=== PATIENT | male | born 1960 | race Caucasian/White ===

== ENCOUNTER 2019-12-15 09:43 | Emergency (ER) | payer OTHER, SELFPAY ==
[2019-12-15 09:52] VITALS: BP 129/69; PULSE 78; RESP 20; TEMP 37.2; O2SAT 99
--- NOTE | 2019-12-15 09:52 | ED.GENADULT ---
HPI - General Adult General Chief complaint: Skin/Abscess/Foreign Body Stated complaint: right hand wasp sting Time Seen by Provider: 12/15/19 09:52 Source: patient Mode of arrival: ambulatory Limitations: no limitations History of Present Illness HPI narrative: 59-year-old male patient presents to the [facility] with complaints of a wasp sting to the right hand that occurred yesterday. Patient states after he was stung he tried to put some ice on it to help with the swelling and states that the swelling did go down and put ice on it several times yesterday. Patient states he also took 2 Benadryl last night as well to Benadryl this morning help with swelling. Patient states that this morning the swelling is gotten significantly worse and feels warm to the touch. Patient states he does feel some tightness to his hand whenever he is making a fist. Denies any chest pain, shortness of breath or trouble swallowing. Related Data Home Medications Medication Instructions Recorded Confirmed atenolol 25 mg PO DAILY 12/15/19 12/15/19 [id number] oil 1 cap PO BID 12/15/19 12/15/19 [Metanx (algal oil)] sildenafil 25 mg PO DAILY PRN 12/15/19 12/15/19 Allergies Allergy/AdvReac Type Severity Reaction Status Date / Time No Known Allergies Allergy Verified 12/15/19 09:59 Review of Systems Review of Systems: Narrative: CONSTITUTIONAL: Denies fever, chills, or sweats. EYES: Denies visual changes, redness, or discharge. ENT: Denies rhinorrhea, congestion, sore throat, or otalgia. CARDIOVASCULAR: Denies chest pain, palpitations, or edema. RESPIRATORY: Denies cough or dyspnea. GASTROINTESTINAL: Denies abdominal pain, nausea, vomiting, or diarrhea. GENITOURINARY: Denies dysuria or hematuria. SKIN: Denies rash or itching. Positive wasp sting to right hand with swelling since yesterday MUSCULOSKELETAL: Denies back pain, joint pain, or myalgia. NEUROLOGIC: Denies headache, numbness, or weakness. PSYCHIATRIC: Denies anxiety or depression. PMFSH Comments At the time of my signature I agree with nursing past medical history, surgical, social, and family history. There is no relevant family history pertinent to the presenting complaint. Exam Narrative: Exam Narrative: GENERAL: Well-appearing, well-nourished, and in no acute distress. HEAD: Normocephalic, atraumatic. EYES: PERRLA and EOMI. ENT: Nares clear, no rhinorrhea or epistaxis. Mucous membranes moist. NECK: Supple. No lymphadenopathy CHEST: Clear to auscultation. No respiratory distress. HEART: Regular rate and rhythm. No murmur heard. Normal peripheral pulses. ABDOMEN: Soft, nontender, nondistended, normal active bowel sounds. EXTREMITIES: Normal range of motion. No edema. SKIN: Warm, dry, no rash. Patient does have swelling noted to the right wrist that extends assisted up the right forearm and into the dorsal side of the right hand. There is no fingers involvement. There is no open wounds or drainage however the site does feel warm to the touch compared to the other arm. NEURO: No focal deficits. Alert and oriented x3. Course Vital Signs Vital signs: Vital Signs Temperature 37.2 C 12/15/19 09:52 Pulse Rate 78 12/15/19 09:52 Respiratory Rate 20 12/15/19 09:52 Blood Pressure 129/69 12/15/19 09:52 Pulse Oximetry 99 12/15/19 09:52 Temperature 37.2 C 12/15/19 09:52 Pulse Rate 78 12/15/19 09:52 Respiratory Rate 20 12/15/19 09:52 Blood Pressure 129/69 12/15/19 09:52 Pulse Oximetry 99 12/15/19 09:52 Vital signs reviewed. Medical Decision Making Differential Diagnosis Differential Diagnosis: Differential diagnosis: Abscess, cellulitis, hidradenitis, laceration, puncture wound. Contact dermatitis, poison kajal, poison sumac, psoriasis, eczema, allergic reaction, drug reaction, scabies, tinea syphilis, lung disease, viral exanthema, pityriasis, erythema multiforme. Discussed with patient this appears to be a localized allergic react
== END 2019-12-15 10:14 | disposition home or self-care (01) ==
PROVIDERS: Emergency Provider Nurse Practitioner Family; PCP Internal Medicine Infectious Disease
DX: L03.113 Cellulitis of right upper limb (principal); T63.461A Toxic effect of venom of wasps, accidental (unintentional), initial encounter; I10 Essential (primary) hypertension
CPT/HCPCS: 99213; G0463